=== PATIENT | male | born 1975 | race Caucasian/White ===

== ENCOUNTER 2018-06-24 17:29 | Inpatient (IN) | payer SELFPAY ==
[~2018-06-24] VITALS: Ht 182.9 cm; Wt 70.5 kg
[2018-06-24] MEDS ORDERED: NS 0.9% IV ONE (17:45)
[2018-06-24 18:00] LABS: PLATELET COUNT, AUTOMATED 187 K/uL (150-450)
[2018-06-24] MEDS ORDERED: ACETAMINOPHEN 325 MG TAB PO ONE (18:00)
--- NOTE | 2018-06-24 18:19 | ER Report ---
History and Physical Time Seen By MD: 17:41 Hx. of Stated Complaint: generalized body aches, dry hacking cough, fever/chills, diarrhea since . (IVANIA ORDAZ DO) HPI/ROS CHIEF COMPLAINT: fever and cough HISTORY OF PRESENT ILLNESS: Pt started feeling sick since . Started with non productive cough, fever, light headed, dizzy, and blurred vision. Pt also with bodyaches. 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 EMS was called due to symptoms getting worse. Ems pt was wheezing and given a treatment in route. Pt arrived on 4 liters oxygen via ems with pulse ox at 94%. Pt has some nausea. no vomiting or diarrhea. REVIEW OF SYSTEMS: Constitutional: + fever, + chills. Eyes: No discharge. ENT: No sore throat. Cardiovascular: No chest pain, no palpitations. Respiratory: + cough, + shortness of breath. Gastrointestinal: No abdominal pain, no vomiting. Genitourinary: No hematuria. Musculoskeletal: + bodyaches Skin: No rashes. Neurological: + headache, + dizzy (IVANIA ORDAZ DO) Allergies: Coded Allergies: No Known Drug Allergies (Unverified , 06/24/18) Home Meds Reported Medications Clonidine Hcl (CLONIDINE HCL) 0.1 Mg Tablet, 0.1 MG PO BID, TAB 06/24/18 Past Medical/Surgical History pmhx: htn, spontaneous ptx Pshx, ptx repair (IVANIA ORDAZ DO) Reviewed Nurses Notes: Yes Old Medical Records Reviewed: No (IVANIA ORDAZ DO) Hx Smoking: Yes Smoking Status: Current: Every Day Smoker (2ppd) Hx Alcohol Use: No (IVANIA ORDAZ DO) Constitutional Vital Sign - Last 24 Hours 06/24/18 06/24/18 06/24/18 06/24/18 17:29 17:31 17:34 17:34 Temp 103.1 Pulse ??? 135 Resp 22 B/P (MAP) 147/101 (116) 142/100 (114) 147/101 Pulse Ox 91 O2 Delivery Nasal Cannula 06/24/18 06/24/18 06/24/18 06/24/18 17:44 17:59 18:14 18:29 Pulse 130 119 ??? 115 Resp 19 9 6 Pulse Ox 92 94 93 06/24/18 06/24/18 06/24/18 06/24/18 18:44 18:49 18:58 18:59 Pulse 126 115 Resp 21 18 B/P (MAP) 128/92 (104) Pulse Ox 93 93 O2 Delivery Nasal Cannula O2 Flow Rate 3.0 06/24/18 06/24/18 06/24/18 06/24/18 18:59 19:02 19:14 19:19 Pulse 117 126 119 119 Resp 12 18 0 31 Pulse Ox 98 93 93 O2 Delivery Nasal Cannula O2 Flow Rate 3 06/24/18 06/24/18 06/24/18 06/24/18 19:24 19:27 19:29 19:34 Temp 103.5 Pulse 116 123 115 Resp 43 22 12 Pulse Ox 92 94 90 06/24/18 06/24/18 06/24/18 19:39 19:44 19:49 Pulse 107 114 108 Resp 40 25 28 Pulse Ox 92 91 94 (AGAPITO HICKS DO) Physical Exam General Appearance: The patient is alert, has no immediate need for airway protection and no signs of toxicity. Eyes: Pupils equal and round no pallor or injection, EOMI ENT: no pharyngeal erythema or exudates, Mucous membranes are moist, TM are nl b/l Respiratory: There are decreased breath sounds with mild wheezing, no retractions Cardiovascular: + tachy. pulses are equal and symmetrical Gastrointestinal: Abdomen is soft and non tender, no masses, bowel sounds normal, no guarding, no rigidity or rebound Neurological: Cranial nerves II-XII grossly intact, no sensory or motor loss Skin: Warm and dry, no rashes. Musculoskeletal: Neck is supple non tender, no vertebral tenderness Extremities are nontender, non swollen and have full range of motion. DIFFERENTIAL DIAGNOSIS: After history and physical exam differential diagnosis was considered for pneumonia, influenza, bronchitis (LAURORA,IVANIA V DO) Medical Decision Making Data Points Result Diagram: 06/25/18 0559 06/25/18 0559 Laboratory Hematology Test 06/24/18 17:25 18 17:40 Influenza Virus Type A (PCR) Positive (NEGATIVE) Influenza Virus Type B (PCR) Negative (NEGATIVE) Peripheral Blood Smear Yes Y/N Lactate 1.9 mmol/L (0.7-2.1) Chemistry Test 06/24/18 17:25 06/24/18 17:40 Influenza Virus Type A (PCR) Positive (NEGATIVE) Influenza Virus Type B (PCR) Negative (NEGATIVE) Peripheral Blood Smear Yes Y/N Lactate 1.9 mmol/L (0.7-2.1) (AGAPITO HICKS DO) Microbiology Microbiology Date/Time Source Procedure Growth Status 06/24/18 18:01 Blood Blood Culture - Preliminary NO GROWTH AFTER 1 DAY, REINCUBATED Resulted 06/24/18 17:40 Blood Blood Culture - Preliminary NO GROWTH AFTER 1 DAY, REINCUBATED Resulted (AGAPITO HICKS DO) EKG/Imaging Imaging X-ray: Two-view chest x-ray was obtained. I viewed the images myself on the PACS system. My interpretation of the images is: Bilateral infiltrates. HISTORY: Cough and fever COMPARISON: None. FINDINGS: Normal and symmetric lung volumes. There are mixed interstitial and airspace opacities in the perihilar aspect of both lungs, greater on the right, suspicio us for multifocal pneumonitis. No pleural effusion or pneumothorax. Normal cardiomediastinal silhouette. Visualized osseous structures appear intact. IMPRESSION: Patchy perihilar infiltrates are suspicious for multifocal pneumonitis. . (AGAPITO HICKS DO) ED Course/Re-evaluation Clinical Indication for ER IV: Hydration, IV Access ED Course check labs including blood cultures and cxr. 06/24/2018 6:18:53 pm S[address] out to Dr. Hicks ([facility] DUEÑAS) Clinical Indication for ER IV: Hydration, IV Access ED Course Care was assumed at shift change from Dr. Gao. Patient with a fever to 103. Grossly hypoxic brought in by EMS requiring 4 L to maintain his saturations in the low 90s. His chest x-ray shows bilateral infiltrates. He is a 13,000 white count with a left shift. His influenza A returns positive. His lactate is normal. He was aggressively fluid resuscitated. He was given Tylenol and ibuprofen for fever control. Despite that he still feeling quite ill.. 06/24/2018 7:29:50 pm case discussed with Dr. Prosper Cueto hospitalist on- call, who accepts patient for admission Decision to Disposition Date: Jun 24, 2018 Decision to Disposition Time: 18:54 (AGAPITO HICKS DO) Depart Departure Latest Vital Signs Vital Signs Date Time Temp Pulse Resp B/P (MAP) Pulse Ox O2 Delivery O2 Flow Rate FiO2 06/24/18 19:49 108 28 94 06/24/18 19:27 103.5 06/24/18 19:14 Nasal Cannula 3 06/24/18 18:49 128/92 (104) (AGAPITO HICKS DO) Impression: Primary Impression: Influenza A Additional Impression: Bilateral pneumonia Condition: Improved Disposition: Admitted from ER Problem Qualifiers Additional Impression: Bilateral pneumonia Pneumonia type: due to unspecified organism Lung location: unspecified part of lung Qualified Codes: J18.9 - Pneumonia, unspecified organism IVANIA ORDAZ DO Jun 24, 2018 18:18 AGAPITO HICKS DO Jun 24, 2018 18:56
--- NOTE | 2018-06-24 18:34 | RADIOLOGY IMAGING REPORT ---
FACILITY: [facility] PATIENT NAME: Vincenzo Bonner : 1975 MR: [id number] V: [id number] EXAM DATE: ORDERING PHYSICIAN: IVANIA ORDAZ TECHNOLOGIST: Location: [facility] [place] Patient: Vincenzo Bonner : 1975 Visit/Account:[id number] Date of Sevice: 06/24/2018 EXAMINATION: Chest 2 Views HISTORY: Cough and fever COMPARISON: None. FINDINGS: Normal and symmetric lung volumes. There are mixed interstitial and airspace opacities in the perihi lar aspect of both lungs, greater on the right, suspicious for multifocal pneumonitis. No pleural effusion or pneumothorax. Normal cardiomediastinal silhouette. Visualized osseous structures appear intact. IMPRESSION: Patchy perihilar infiltrates are suspicious for multifocal pneumonitis. Report Dictated By: Hugo Santacruz MD at 06/24/2018 6:29 PM Report E-Signed By: Hugo Santacruz MD at 06/24/2018 6:31 PM WSN:[email or web address]
[2018-06-24] MEDS ORDERED: IBUPROFEN 600 MG TAB PO ONE (18:50)
[2018-06-24] MEDS ORDERED: LEVOFLOXACIN 500 MG TAB PO ONE (18:50)
[2018-06-24] MEDS ORDERED: ALBUTEROL/IPRATROPIUM 3 ML NEB NEB ONE (18:50)
[2018-06-24] MEDS ORDERED: cefTRIAXone 2 GM VIAL IVP ONE (18:50)
[2018-06-24] MEDS ORDERED: OSELTAMIVIR PHOS 75 MG CAP PO ONE ×2 (19:00→22:00)
[2018-06-24 20:39] VITALS: BP 142/91
[2018-06-24] MEDS ORDERED: FLUSH 10 ML SYR IVP PRN (20:45)
[2018-06-24] MEDS ORDERED: MORPHINE 2 MG/ML SYR IVP PRN (20:50)
[2018-06-24] MEDS ORDERED: CLON-327 PO (21:03)
--- NOTE | 2018-06-24 21:08 | History & Physical ---
History of Present Illness Chief Complaint "I feel terrible" History of Present Illness 42yo male with PMHx significant for HTN, spontaneous PNTX s/p chest tube/pleurodesis. 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 He states he began feeling feverish, lightheaded, having BROOKS/diffuse body aches, coughing approximately 3-4 days ago. He and his co-milk pickup truck driver have had the same symptoms. They stopped at a local truck stop to "get over" the symptoms. Unfortunately, everything seemed to worsen including increasing d yspnea, poor appetite, diarrhea. He contacted EMS and was transported to the [facility] ER for evaluation. He was found to be hypoxic with bilateral perihilar infiltrates and influenza A positive. He was recommended for admission. History Problems: (1) HTN (hypertension) Status: Chronic (2) Spontaneous pneumothorax Status: Resolved Home Meds No Active Prescriptions or Reported Meds Allergies: Coded Allergies: No Known Drug Allergies (Unverified , 06/24/18) Other Social/Family Hx He reports his family has been very healthy with no known problems. Hx Smoking: Yes Smoking Status: Current: Every Day Smoker (2ppd) Hx Alcohol Use: No Review of Systems Constitutional: Fever, Chills Neurological: Weakness, Dizziness Cardiovascular: No Chest Pain Respiratory: Shortness of Breath, Cough Gastrointestinal: Diarrhea; No Hematemesis, No Hematochezia, No Melena, No Abdominal Pain Genitourinary: No Dysuria, No Hematuria Musculoskeletal: Pain Exam Vital Signs Vital Signs Date Time Temp Pulse Resp B/P (MAP) Pulse Ox O2 Delivery O2 Flow Rate FiO2 06/24/18 20:06 101.4 06/24/18 20:04 110 7 91 06/24/18 19:14 Nasal Cannula 3 06/24/18 18:49 128/92 (104) General Appearance: Alert, Awake Neuro: No Gross deficits Eyes: PERRLA, Other (sclera anicteric) Neck: No Masses Cardiovascular: Regular Rate and Rhythm, No Edema, No JVD Respiratory: Other (few scattered rhonchi) Chest: No Tenderness GI: Abd Soft and Non-Tender, Other (BS present) : No CVA Tenderness Lymph: No Adenopathy Extremities: Warm, Perfused Integumentary: Skin Intact without Lesion / Mass, Other (multiple tatoos) Psych: Alert & Oriented X3 Medical Decision Making Data Points Result Diagram: 06/24/18 1740 06/24/18 1740 Item Value Date Time Albumin 4.4 g/dl 06/24/18 1740 Total Protein 7.8 g/dl 06/24/18 1740 Alkaline Phosphatase 67 U/L 06/24/18 1740 Alanine Aminotransferase (ALT/SGPT) 35 U/L 06/24/18 1740 Aspartate Amino Transf (AST/SGOT) 109 U/L H 06/24/18 1740 Total Bilirubin 0.7 mg/dl 06/24/18 1740 Calcium Level 9.4 mg/dl 06/24/18 1740 Lactate 1.9 mmol/L 06/24/18 174 Influenza Virus Type B (PCR) Negative 06/24/18 172 Influenza Virus Type A (PCR) Positive 06/24/18 172 EKG / Imaging Imaging PATIENT NAME: Vincenzo Bonner : 1975 MR: [id number] V: [id number] EXAM DATE: [id number] ORDERING PHYSICIAN: IVANIA ORDAZ TECHNOLOGIST: Location: [facility] Patient: Vincenzo Bonner : 1975 Visit/Account:[id number] Date of Sevice: 06/24/2018 EXAMINATION: Chest 2 Views HISTORY: Cough and fever COMPARISON: None. FINDINGS: Normal and symmetric lung volumes. There are mixed interstitial and airspace opacities in the perihilar aspect of both lungs, greater on the right, suspicious for multifocal pneumonitis. No pleural effusion or pneumothorax. Normal cardiomediastinal silhouette. Visualized osseous structures appear intact. IMPRESSION: Patchy perihilar infiltrates are suspicious for multifocal pneumonitis. Report Dictated By: Hugo Santacruz MD at 06/24/2018 6:29 PM Report E-Signed By: Hugo Santacruz MD at 06/24/2018 6:31 PM WSN:[facility] Assessment and Plan Problems: (1) Influenza A Status: Acute Assessment & Plan: It sounds as if he has had symptoms for several days, but due to severity of illness will start on Tamiflu 75mg PO BID for a minimum of 5 days. Will also give generous IV fluids as he has not been taking PO very well. Watch closely. (2) Bilateral pneumonia Status: Acute Assessment & Plan: He may have influenza pneumonia, but could also have a bacterial pneumonia as well. He does not have significant risk factors for MRSA. Will cover with IV Rocephin and Levaquin. Will also give supplemental oxygen and respiratory treatments as needed. (3) HTN (hypertension) Status: Chronic Assessment & Plan: He had previously been treated with clonidine 0.1mg PO BID, but he admits he has not taken this for several weeks. Will watch BPs and consider therapy if he has significant sustained elevation. Venous Thromboembolism Antithrombotics Is Pt On Any Antithrombotics?: Yes Exam Sepsis Risk: No Definite Risk Problem Qualifiers (1) Bilateral pneumonia: Pneumonia type: due to unspecified organism Lung location: unspecified part of lung Qualified Codes: J18.9 - Pneumonia, unspecified organism KELLY LAKHANI MD Jun 24, 2018 21:08
[2018-06-24] MEDS: NS(*) 0.9% 1000 ML BAG 1,000 ML IV PRN (21:13)
[2018-06-24 23:03] VITALS: BP 131/95
[2018-06-25] MEDS: IBUPROFEN 600 MG TAB PO PRN ×3 (01:30→14:22)
[2018-06-25 03:09] VITALS: BP 130/96
[2018-06-25] MEDS: NS(*) 0.9% 1000 ML BAG 1,000 ML IV PRN ×2 (05:57→17:38)
[2018-06-25 06:08] LABS: PLATELET COUNT, AUTOMATED 145 K/uL (150-450)
[2018-06-25] MEDS: OSELTAMIVIR PHOS 75 MG CAP PO SCH ×2 (09:33→21:38)
[2018-06-25] MEDS: ENOXAPARIN 40 MG/0.4ML SYR SC SCH (09:34)
[2018-06-25 09:36] VITALS: BP 140/91
--- NOTE | 2018-06-25 10:11 | Hospitalist Progress Note ---
Subjective Progress Notes Subjective This patient was admitted for influenza and pneumonia. He had no acute events overnight. Patient Complains of: Cardiovascular: No: Chest Pain Respiratory: No: Shortness of Breath Physical Exam Vital Signs Date Time Temp Pulse Resp B/P (MAP) Pulse Ox O2 Delivery O2 Flow Rate FiO2 06/25/18 09:36 98.5 90 20 140/91 (107) 93 Nasal Cannula 2.5 Intake and Output 06/25/18 06:59 Intake Total 1180 ml Balance 1180 ml Intake Oral 200 ml IV Total 980 ml # Voids 3 Cardiovascular: Regular Rate and Rhythm Respiratory: Clear to Auscultation Result Diagram: 06/25/18 0559 06/25/18 0559 Item Value Date Time Influenza Virus Type A (PCR) Positive 06/24/18 1725 Item Value Date Time Blood Culture - Preliminary Resulted 06/24/18 1801 Blood NO GROWTH AFTER 1 DAY, REINCUBATED Blood Culture - Preliminary Resulted 06/24/18 1740 Blood NO GROWTH AFTER 1 DAY, REINCUBATED Assessment and Plan Problems: (1) Influenza A Status: Acute Assessment & Plan: He did test positive for influenza A. He has been started on treatment with Tamiflu. (2) Bilateral pneumonia Status: Acute Assessment & Plan: His chest x-ray did show bilateral interstitial infiltrates. He has been started on empiric treatment with ceftriaxone and levofloxacin. We have stopped the ceftriaxone and placed him on oral levofloxacin. (3) HTN (hypertension) Status: Chronic Assessment & Plan: He had previously been treated with clonidine, but has not been taking this regularly. Exam Sepsis Risk: Sepsis Risk Problem Qualifiers (1) Bilateral pneumonia: Pneumonia type: due to unspecified organism Lung location: unspecified part of lung Qualified Codes: J18.9 - Pneumonia, unspecified organism (2) HTN (hypertension): Hypertension type: essential hypertension Qualified Codes: I10 - Essential (primary) hypertension AVERY JOHNSON DO Jun 25, 2018 10:11
[2018-06-25 12:08] VITALS: Ht 182.9 cm; Wt 70.5 kg
--- NOTE | 2018-06-25 12:09 | Antimicrobial Stewardship ---
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 Viry Hill, PharmD, BCOP VIRY HILL Jun 25, 2018 12:09
[2018-06-25] MEDS: LEVOFLOXACIN 750 MG TAB PO SCH (12:34)
[2018-06-25] MEDS: ACETAMINOPHEN 325 MG TAB PO PRN ×2 (12:34→19:57)
[2018-06-25] MEDS: BENZOCAINE/MENTHOL 1 EACH LOZG PO PRN ×2 (12:34→14:15)
[2018-06-25 16:08] VITALS: BP 128/80
[2018-06-25] MEDS ORDERED: LEVOFLOXACIN/D5W*500 MG/100 ML 100 ML IVPB SCH (18:00)
[2018-06-25] MEDS ORDERED: cefTRIAXone(*) 1 GM VIAL 1 GM in NS(*) 0.9% 100 ML ADDVANT BAG 100 ML IVPB SCH (18:30)
[2018-06-25 18:54] VITALS: BP 137/90
[2018-06-26] MEDS: BENZOCAINE/MENTHOL 1 EACH LOZG PO PRN ×2 (01:20→07:29)
[2018-06-26] MEDS: IBUPROFEN 600 MG TAB PO PRN ×3 (01:20→14:52)
[2018-06-26 02:58] VITALS: BP 128/89
[2018-06-26] MEDS: ACETAMINOPHEN 325 MG TAB PO PRN ×3 (03:23→19:21)
[2018-06-26 07:21] VITALS: BP 118/79
[2018-06-26] MEDS: ALBUTEROL/IPRATROPIUM 3 ML NEB NEB SCH ×3 (08:49→16:59)
[2018-06-26] MEDS: guaiFENesin 600 MG TABCR PO SCH ×2 (09:38→20:13)
[2018-06-26] MEDS: LEVOFLOXACIN 750 MG TAB PO SCH (09:38)
[2018-06-26] MEDS: ENOXAPARIN 40 MG/0.4ML SYR SC SCH (09:38)
[2018-06-26] MEDS: OSELTAMIVIR PHOS 75 MG CAP PO SCH ×2 (09:38→20:13)
--- NOTE | 2018-06-26 11:15 | Hospitalist Progress Note ---
Subjective Progress Notes Subjective He was admitted for Influenza and Pneumonia. He reports some improvement in symptoms. However, he is still requiring 5 liters of oxygen. Patient Complains of: Cardiovascular: No: Chest Pain Respiratory: Cough, Congestion, Shortness of Breath Physical Exam Vital Signs Date Time Temp Pulse Resp B/P (MAP) Pulse Ox O2 Delivery O2 Flow Rate FiO2 06/26/18 08:58 98 18 06/26/18 08:58 Nasal Cannula 4.5 06/26/18 08:49 94 06/26/18 07:21 98.6 118/79 (92) Intake and Output 06/26/18 07:00 Intake Total 2566 ml Balance 2566 ml Intake Oral 1580 ml IV Total 986 ml # Voids 5 General Appearance: Alert, Awake, No Acute Distress, Afebrile Neuro: No Gross deficits Cardiovascular: Regular Rate and Rhythm Respiratory: No Respiratory Distress, Other (diminished lung sounds throughout) GI: Soft and Non-Tender Psych: Alert & Oriented X3, Appropriate Mood & Affect Result Diagram: 06/25/18 0559 06/25/18 0559 Assessment and Plan Problems: (1) Influenza A Status: Acute Assessment & Plan: He did test positive for influenza A. He has been started on treatment with Tamiflu. (2) Bilateral pneumonia Status: Acute Assessment & Plan: His chest x-ray did show bilateral interstitial infiltrates. He has been started on empiric treatment with ceftriaxone and levofloxacin. We have stopped the ceftriaxone and placed him on oral levofloxacin. We will add nebulizers and guaifenesin today. (3) HTN (hypertension) Status: Chronic Assessment & Plan: He had previously been treated with clonidine, but has not been taking this regularly. Exam Sepsis Risk: No Definite Risk Problem Qualifiers (1) Bilateral pneumonia: Pneumonia type: due to unspecified organism Lung location: unspecified part of lung Qualified Codes: J18.9 - Pneumonia, unspecified organism (2) HTN (hypertension): Hypertension type: essential hypertension Qualified Codes: I10 - Essential (primary) hypertension ANNABELLA LOCKP Jun 26, 2018 11:15
[2018-06-26 11:43] VITALS: BP_SYST 98
[2018-06-26 14:50] VITALS: BP 116/87
[2018-06-26] MEDS: guaiFENesin SYRP 100MG/5ML UDC PO PRN ×2 (14:52→19:22)
[2018-06-26 19:23] VITALS: BP 129/93
[2018-06-26] MEDS ORDERED: traMADol 50 MG TAB PO PRN (20:50)
[2018-06-27 03:18] VITALS: BP 138/94
[2018-06-27] MEDS: ALBUTEROL/IPRATROPIUM 3 ML NEB NEB SCH ×3 (05:21→17:22)
[2018-06-27] MEDS ORDERED: BENZONATATE 100 MG CAP PO PRN (09:05)
[2018-06-27] MEDS ORDERED: methylPREDNIS SUCC 125 MG/2ML IVP ONE (09:31)
[2018-06-27] MEDS: LEVOFLOXACIN 750 MG TAB PO SCH (10:13)
[2018-06-27] MEDS: guaiFENesin 600 MG TABCR PO SCH ×2 (10:13→21:08)
[2018-06-27] MEDS: OSELTAMIVIR PHOS 75 MG CAP PO SCH ×2 (10:13→21:09)
[2018-06-27] MEDS: ENOXAPARIN 40 MG/0.4ML SYR SC SCH (10:14)
--- NOTE | 2018-06-27 10:26 | RADIOLOGY IMAGING REPORT ---
FACILITY: [facility] PATIENT NAME: Vincenzo Bonner : 1975 MR: [id number] V: [id number] EXAM DATE: ORDERING PHYSICIAN: CHU CONDE TECHNOLOGIST: Location: [facility] Patient: Vincenzo Bonner : 1975 Visit/Account:[id number] Date of Sevice: 06/27/2018 Exam type: CHEST SINGLE AP History: hypoxia, pneumonia Comparison: June 24, 2018. Findings: There has been marked interval worsening of the interstitial and alveolar infiltrates throughout both lungs particularly prominent in the mid to lower lung zones. No evidence of pleural effusions. The cardiac silhouette appears normal. IMPRESSION: 1. Marked interval worsening of the bilateral pulmonary infiltrates in the mid to lower lung zones c onsistent with the history of pneumonia Results were called to CHU CONDE at 06/27/2018 10:21 AM. Report Dictated By: Tangela Schreiber MD at 06/27/2018 10:17 AM Report E-Signed By: Tangela Schreiber MD at 06/27/2018 10:21 AM WSN:[email or web address]
--- NOTE | 2018-06-27 10:42 | Hospitalist Progress Note ---
Subjective Progress Notes Subjective He reports overall improvement. However, he still has a high O2 requirement this morning. Physical Exam Vital Signs Date Time Temp Pulse Resp B/P (MAP) Pulse Ox O2 Delivery O2 Flow Rate FiO2 06/27/18 05:30 94 Oxy Mask 5.0 06/27/18 05:22 109 26 06/27/18 03:18 98.9 138/94 (109) Intake and Output 06/27/18 07:00 Intake Total 960 ml Balance 960 ml Intake Oral 960 ml # Voids 5 # Bowel Movements 1 General Appearance: Alert, Awake, No Acute Distress Cardiovascular: Regular Rate and Rhythm Respiratory: Other (Clear, but much coughing. Moving air to the bases well) Result Diagram: 06/25/18 0559 06/25/18 0559 Assessment and Plan Problems: (1) Bilateral pneumonia Status: Acute Assessment & Plan: He presented with BROOKS, diffuse body aches, and coughing for 3-4 days prior to admission. His presenting chest x-ray did show bilateral interstitial infiltrates. He has been started on empiric treatment with ceftriaxone and levofloxacin. We have stopped the ceftriaxone and placed him on oral levofloxacin. He continues to have a high O2 requirement at 5 liters. Certainly, his smoking hx and previous spontaneous pneumothorax with pleurodesis are contributing, but repeat CXR today shows significant worsening in the bilateral infiltrates. He is afebrile. Will recheck wbc and if it is elevated will add Vancomycin. Will add methylprednisolone secondary to the long smoking hx. Repeat CXR tomorrow. (2) Influenza A Status: Acute Assessment & Plan: He did test positive for influenza A. He has been started on treatment with Tamiflu. (3) HTN (hypertension) Status: Chronic Assessment & Plan: He had previously been treated with clonidine, but has not been taking this regularly. Exam Sepsis Risk: No Definite Risk Problem Qualifiers (1) Bilateral pneumonia: Pneumonia type: due to unspecified organism Lung location: unspecified part of lung Qualified Codes: J18.9 - Pneumonia, unspecified organism (2) HTN (hypertension): Hypertension type: essential hypertension Qualified Codes: I10 - Essential (primary) hypertension CHU CONDE MD Jun 27, 2018 10:42
[2018-06-27 10:48] LABS: PLATELET COUNT, AUTOMATED 161 K/uL (150-450)
[2018-06-27 11:39] VITALS: BP 140/88
[2018-06-27 15:32] VITALS: BP 118/78
[2018-06-27] MEDS: methylPREDNIS SUCC 125 MG/2ML IVP SCH (17:17)
[2018-06-27 19:58] VITALS: BP 121/81
[2018-06-28] MEDS: methylPREDNIS SUCC 125 MG/2ML IVP SCH ×3 (00:53→17:25)
[2018-06-28 00:59] VITALS: BP 111/80
[2018-06-28] MEDS: ALBUTEROL/IPRATROPIUM 3 ML NEB NEB SCH ×3 (05:43→17:04)
--- NOTE | 2018-06-28 06:00 | RADIOLOGY IMAGING REPORT ---
FACILITY: [facility] PATIENT NAME: Vincenzo Bonner : 1975 MR: [id number] V: [id number] EXAM DATE: ORDERING PHYSICIAN: CHU CONDE TECHNOLOGIST: Location: [facility] Patient: Vincenzo Bonner : 1975 Visit/Account:[id number] Date of Sevice: 06/28/2018 Exam type: CHEST SINGLE AP History: pneumonia Comparison: 06/27/2018. Findings: Reidentified is bilateral airspace disease greater on the left. There is improved aeration both lungs when compared to prior exam. No appreciable pneumothorax or pleural effusion. Biapical pleural scarr ing is noted. Heart size is normal. Osseous structures are unremarkable. IMPRESSION: 1. Decrease in the bibasilar airspace disease when compared to prior examination suggesting improveme nt. Report Dictated By: Truong Chang MD at 06/28/2018 5:50 AM Report E-Signed By: Truong Chang MD at 06/28/2018 5:57 AM WSN:[id number]
[2018-06-28] MEDS: OSELTAMIVIR PHOS 75 MG CAP PO SCH ×2 (09:48→21:04)
[2018-06-28] MEDS: ENOXAPARIN 40 MG/0.4ML SYR SC SCH (09:49)
[2018-06-28] MEDS: guaiFENesin 600 MG TABCR PO SCH ×2 (09:49→21:04)
[2018-06-28] MEDS: LEVOFLOXACIN 750 MG TAB PO SCH (09:49)
--- NOTE | 2018-06-28 10:50 | Hospitalist Progress Note ---
Subjective Progress Notes Subjective He reports feeling somewhat improved. No fever. Physical Exam Vital Signs Date Time Temp Pulse Resp B/P (MAP) Pulse Ox O2 Delivery O2 Flow Rate FiO2 06/28/18 08:01 90 Nasal Cannula 10.0 06/28/18 05:44 78 22 06/28/18 00:59 98.2 111/80 (90) Intake and Output 06/28/18 07:00 Intake Total 500 ml Balance 500 ml Intake Oral 500 ml # Voids 5 General Appearance: Alert, Awake Cardiovascular: Regular Rate and Rhythm Respiratory: Other (few scattered rhonchi rales) GI: Soft and Non-Tender Extremities: Warm, Perfused Psych: Alert & Oriented X3 Result Diagram: 06/27/18 1044 06/27/18 1044 Assessment and Plan Problems: (1) Bilateral pneumonia Status: Acute Assessment & Plan: He presented with BROOKS, diffuse body aches, and coughing for 3-4 days prior to admission. His presenting chest x-ray did show bilateral interstitial infiltrates. He was started on empiric treatment with IV ceftriax one and levofloxacin. We have stopped the ceftriaxone and placed him on oral levofloxacin. He continues to have a high O2 requirement at 6-7 liters. Certainly, his smoking hx and previous spontaneous pneumothorax with pleurodesis are contributing, but repeat CXR yesterday showed significant worsening in the bilateral infiltrates. We added methylprednisolone secondary to the long smoking history. His CXR today does show some slight improvements. He is afebrile. No changes at this time. (2) Influenza A Status: Acute Assessment & Plan: He did test positive for influenza A. He has been started on treatment with Tamiflu. Will plan on a minimum of 7 days of therapy. (3) HTN (hypertension) Status: Chronic Assessment & Plan: He had previously been treated with clonidine, but has not been taking this regularly. Exam Sepsis Risk: No Definite Risk Problem Qualifiers (1) Bilateral pneumonia: Pneumonia type: due to unspecified organism Lung location: unspecified part of lung Qualified Codes: J18.9 - Pneumonia, unspecified organism (2) HTN (hypertension): Hypertension type: essential hypertension Qualified Codes: I10 - Essential (primary) hypertension KELLY LAKHANI MD Jun 28, 2018 10:49
[2018-06-28 11:31] VITALS: BP 118/73
[2018-06-28] MEDS ORDERED: SALINE 0.65% NAS SPR 44 ML BTL PRN (16:00)
[2018-06-28 16:46] VITALS: BP 126/84
[2018-06-28] MEDS: IBUPROFEN 600 MG TAB PO PRN (18:09)
[2018-06-28 19:47] VITALS: BP 126/75
[2018-06-29] MEDS: methylPREDNIS SUCC 125 MG/2ML IVP SCH (00:31)
[2018-06-29 02:26] VITALS: BP 130/77
[2018-06-29] MEDS: ALBUTEROL/IPRATROPIUM 3 ML NEB NEB SCH ×2 (05:29→12:00)
[2018-06-29 06:48] VITALS: BP 114/74
[2018-06-29 08:00] VITALS: BP 116/77
[2018-06-29] MEDS: LEVOFLOXACIN 750 MG TAB PO SCH (09:35)
[2018-06-29] MEDS ORDERED: predniSONE 20 MG TAB PO ONE (09:35)
[2018-06-29] MEDS: ENOXAPARIN 40 MG/0.4ML SYR SC SCH (09:35)
[2018-06-29] MEDS: guaiFENesin 600 MG TABCR PO SCH (09:35)
[2018-06-29] MEDS: OSELTAMIVIR PHOS 75 MG CAP PO SCH (09:40)
[2018-06-29] MEDS ORDERED: OSE75 PO (10:06)
[2018-06-29] MEDS ORDERED: BENZ100C26 PO (10:06)
[2018-06-29] MEDS ORDERED: ALB18R INH (10:06)
[2018-06-29] MEDS ORDERED: PRED-1 PO (10:11)
--- NOTE | 2018-06-29 10:20 | Hospitalist Depart ---
Discharge Summary Reason for Hosp/Final Diag: (1) Bilateral pneumonia Status: Acute Hospital Course & Plan: He presented with BROOKS, diffuse body aches, and coughing for 3-4 days prior to admission. His presenting chest x-ray did show bilateral interstitial infiltrates. He was started on empiric treatment with IV ceftri axone and levofloxacin. We have stopped the ceftriaxone and placed him on oral levofloxacin (treatment completed). He had a high O2 requirement at 6-7 liters, but now has reduced to 1.5L. He will need oxygen to go home. Patient does not believe he needs oxygen at this point, but we had a long conversation the risks of not using oxygen to result in . He understands the risks and has been refusing oxygen at this time. Certainly, his smoking hx and previous spontaneous pneumothorax with pleurodesis are contributing to the severity. CXR on 06/17 showed significant worsening in the bilateral infiltrates, and methylprednisolone was added secondary to the long smoking history. His CXR 06/28 does show some slight improvements. He is afebrile. He will need to follow up with PCP when he gets home. (2) Influenza A Status: Acute Hospital Course & Plan: He did test positive for influenza A. He has been started on treatment with Tamiflu. Will plan on a minimum of 7 days of therapy. (3) HTN (hypertension) Status: Chronic Hospital Course & Plan: He had previously been treated with clonidine, but has not been taking this regularly. Departure Latest Vital Signs Vital Signs 06/29/18 06/29/18 06:48 09:15 Temp 98.0 Pulse 97 Resp 16 B/P (MAP) 114/74 (87) Pulse Ox 77 O2 Delivery Nasal Cannula O2 Flow Rate 3.0 Weight (Pounds): 155 Weight (Ounces): 8.0 Result Diagram: 06/27/18 1044 06/27/18 1044 Condition: Improved Discharge: Home, Self Care Discharge Instructions Home Meds Active Scripts Prednisone 10 Mg Tab (PREDNISONE 10 MG TAB) 10 Mg Tablet, 10 MG PO DIRECTED, #60 TAB Take 6 tablets for 2 days, then 5 tablets for 3 days, then 4 tablets for 3 days, then 3 tablets for 3 days, then 2 tablets for 3 days, then 1 tablet for 3 days, then stop. Prov:ANNABELLA LOCK [employer] 06/29/18 Oseltamivir Phosphate (TAMIFLU) 75 Mg Cap, 75 MG PO BID, #6 CAP Prov:ANNABELLA LOCK [facility] 06/29/18 Benzonatate (BENZONATATE) 100 Mg Capsule, 200 MG PO Q8H PRN for cough, #20 CAPSULE Prov:ANNABELLA LOCK [facility] 06/29/18 Albuterol Sulfate (VENTOLIN HFA) 18 Gm Inh, 2 PUFF INH Q4-6H PRN for SHORTNESS OF BREATH, #1 INH Prov:LARRY LOCKAVINASH Mazariegos [facility] 06/29/18 Reported Medications Clonidine Hcl (CLONIDINE HCL) 0.1 Mg Tablet, 0.1 MG PO BID, TAB 06/24/18 Diet: Regular Activity: As Tolerated Special Instructions: Please follow up with provider when you get home. Continue all medications as prescribed. Do not stop taking Prednisone until completed. Please use oxygen as prescribed. Venous Thromboembolism Antithrombotics Is Pt On Any Antithrombotics?: Yes Problem Qualifiers (1) Bilateral pneumonia: Pneumonia type: due to unspecified organism Lung location: unspecified part of lung Qualified Codes: J18.9 - Pneumonia, unspecified organism (2) HTN (hypertension): Hypertension type: essential hypertension Qualified Codes: I10 - Essential (primary) hypertension LOCKANNABELLA Mazariegos [facility] Jun 29, 2018 10:20
== END 2018-06-29 12:20 | disposition home or self-care (01) | DRG 195 ==
LOC: ER 17:39 → MED 19:52
PROVIDERS: ADMIT Internal Medicine; ATTEND Internal Medicine
DX: J09.X1 Influenza due to identified novel influenza A virus with pneumonia (principal); I10 Essential (primary) hypertension; F17.210 Nicotine dependence, cigarettes, uncomplicated; R09.02 Hypoxemia
CPT/HCPCS: 36415; 71045; 71046; 82040; 82247; 82310; 82374; 82435; 82565; 82947; 83605; 84075; 84132; 84155; 84295; 84450; 84460; 84520; 85025; 87040; 87502; 94640; 94667; 96361; 96374; 99284; J0696; J1650; J2270; J2930; J7030; J7512